=== PATIENT | female | born 1990 | race Caucasian/White ===

== ENCOUNTER 2017-12-30 00:12 | Emergency (ER) | payer OTHER ==
[~2017-12-30] VITALS: Ht 170.2 cm; Wt 63.5 kg
[2017-12-30] MEDS ORDERED: NORCO 5-325 TA1 EACH PO (00:53)
[2017-12-30] MEDS ORDERED: BACTRIM DS TAB1 EACH PO (00:53)
[2017-12-30 01:03] VITALS: BP 136/74
== END 2017-12-30 01:04 | disposition home or self-care (01) ==
LOC: M.ERS 00:12
DX: L02.411 Cutaneous abscess of right axilla (principal)

== ENCOUNTER 2021-02-27 10:31 | Emergency (ER) | payer OTHER ==
[~2021-02-27] VITALS: Ht 170.2 cm; Wt 63.5 kg
[~2021-02-27 10:31] MED LIST: BACTRIM DS TAB1 EACH PO; NORCO 5-325 TA1 EACH PO
[2021-02-27] MEDS ORDERED: NAPROSYN500 MG PO (12:20)
[2021-02-27] MEDS ORDERED: APAP W/CODEINE1 TA2 PO (12:20)
[2021-02-27 12:48] VITALS: BP 140/89
== END 2021-02-27 12:50 | disposition home or self-care (01) ==
LOC: M.ERS 10:31
DX: S93.402A Sprain of unspecified ligament of left ankle, initial encounter (principal); W19.XXXA Unspecified fall, initial encounter; Y93.68 Activity, volleyball (beach) (court); Y92.89 Other specified places as the place of occurrence of the external cause; Y99.8 Other external cause status